=== PATIENT | female | born 1985 ===

== ENCOUNTER 2022-03-03 18:00 | Inpatient (IN) | payer OTHER ==
[2022-03-03 19:03] VITALS: BMI 36.1
[2022-03-03] MEDS ORDERED: FENTANYL/BUPIVACAINE/NS/PF - PCEA - 50 ML DISP.SYRIN EP ONE ×2 (19:35→23:34)
[2022-03-03] MEDS ORDERED: NALOXONE HCL 0.4 MG/ML VIAL IVPUSH PRN (20:30)
[2022-03-03] MEDS ORDERED: FENTANYL/BUPIVACAINE/NS/PF - PCEA - 50 ML DISP.SYRIN EP SCH (20:30)
[2022-03-03 21:15] LABS: BASO % 0.2 % (0-2.0); HEMATOCRIT 37.2 % (32.4-45.2); HEMOGLOBIN 12.1 GM/dL (10.7-15.3); LYMPH % 3.4 % (8-40); MCH 27.2 pg (25.7-33.7); MCHC 32.5 g/dl (32.0-36.0); MEAN CELL VOLUME 83.7 fl (80-96); MONO % 6.7 % (3.8-10.2); NEUT % 89.7 % (42.8-82.8); PLATELET COUNT 218 10^3/uL (134-434); RBC 4.45 M/mm3 (3.60-5.2); RDW 15.4 % (11.6-15.6); WHITE BLOOD COUNT 19.9 K/mm3 (4.0-10.0)
[2022-03-03] MEDS ORDERED: ELECTROLYTE-148 SOLN 1,000 ML IV SCH (21:15)
[2022-03-03 21:17] LABS: INR 1.06 (0.83-1.09); PROTHROMBIN TIME (PATIENT) 12.2 SEC (9.7-13.0)
[2022-03-03 21:20] LABS: ACTIVATED PTT 28.8 SECONDS (25.2-36.5)
[2022-03-03 21:29] LABS: CALCIUM 8.7 mg/dL (8.5-10.1)
[2022-03-03 21:31] LABS: BLOOD UREA NITROGEN 5.4 mg/dL (7-18)
[2022-03-03 21:34] LABS: CREATININE 0.8 mg/dL (0.55-1.3)
[2022-03-03] MEDS ORDERED: ONDANSETRON 4 MG/2 ML VIAL ONE (22:22)
[2022-03-04] MEDS ORDERED: METHYLERGONOVINE MALEATE 0.2 MG/1 ML AMP IM PRN (00:08)
[2022-03-04] MEDS ORDERED: ACETAMINOPHEN 325 MG TABLET (FP) PO PRN (00:08)
[2022-03-04] MEDS ORDERED: OXYTOCIN 20 UNITS in 0.9% NS 20 UNIT/1,000 ML INFUS.BAG IV SCH (00:15)
[2022-03-04] MEDS ORDERED: LIDO 2%/EPI 1:200000 PRESRVFRE (20 ML SDVIAL) ONE (00:22)
[2022-03-04] MEDS ORDERED: SODIUM BICARBONATE 8.4% 50 MEQ/50 ML VIAL ONE (00:22)
[2022-03-04] MEDS ORDERED: OXYTOCIN 20 UNITS in 0.9% NS 20 UNIT/1,000 ML INFUS.BAG IV ONE ×2 (00:22→00:46)
[2022-03-04] MEDS ORDERED: ACETAMINOPHEN INJECTION 100 ML IVPB ONE (00:22)
[2022-03-04] MEDS ORDERED: OXYTOCIN 30 UNITS in 0.9% NS 30 UNIT/500 ML INFUS.BAG IVPB ONE (00:58)
[2022-03-04] MEDS ORDERED: PHENYLEPHRINE HCL 10 MG/1 ML SINGLE DOSE VIAL ONE (01:35)
[2022-03-04] MEDS ORDERED: ceFAZolin SODIUM 1 GM VIAL ONE (01:40)
[2022-03-04] MEDS ORDERED: OXYTOCIN 10 UNITS/ML VIAL ONE (01:52)
[2022-03-04] MEDS ORDERED: CEFAZOLIN 1 GM/D5W 50 ML IVPB SCH (02:00)
[2022-03-04] MEDS: CEFAZOLIN 1 GM in DEXTROSE 5%-WATER - 50 ML IVPB SCH ×3 (02:00→17:07)
[2022-03-04] MEDS ORDERED: ONDANSETRON 4 MG/2 ML VIAL ONE (02:13)
[2022-03-04] MEDS ORDERED: ONDANSETRON 4 MG/2 ML VIAL IVPUSH PRN (03:37)
[2022-03-04 05:51] LABS: CORD BASE EXCESS -6.5 mmol/L (0-2); CORD PCO2 60.2 mmHg (30-78); CORD pH 7.2 (7.14-7.44)
[2022-03-04 05:52] LABS: CORD PCO2 84.4 mmHg (30-78); CORD pH 7.139 (7.14-7.44)
[2022-03-04] MEDS: SIMETHICONE 80 MG TAB.CHEW (FP) PO PRN (06:13)
[2022-03-04] MEDS: ENOXAPARIN NA (PORCINE) 40 MG/0.4 ML DISP.SYRIN SQ SCH (09:56)
[2022-03-04] MEDS ORDERED: oxyCODONE HCL 5 MG TABLET PO PRN ×2 (12:08)
[2022-03-04] MEDS ORDERED: IBUPROFEN 800 MG/8 ML IJ IVPB PRN (13:52)
[2022-03-05] MEDS ORDERED: BISACODYL 10 MG SUPP.RECT RC PRN (00:08)
[2022-03-05] MEDS: SIMETHICONE 80 MG TAB.CHEW (FP) PO PRN ×3 (04:39→21:18)
[2022-03-05] MEDS: IBUPROFEN 600 MG TABLET (FP) PO PRN ×4 (04:39→21:18)
[2022-03-05 09:01] LABS: BASO % 0.3 % (0-2.0); EOS % 0.6 % (0-4.5); HEMATOCRIT 28.2 % (32.4-45.2); HEMOGLOBIN 9.7 GM/dL (10.7-15.3); LYMPH % 5.9 % (8-40); MCH 28.3 pg (25.7-33.7); MCHC 34.5 g/dl (32.0-36.0); MEAN CELL VOLUME 82.1 fl (80-96); MONO % 10.5 % (3.8-10.2); NEUT % 82.7 % (42.8-82.8); PLATELET COUNT 200 10^3/uL (134-434); RBC 3.44 M/mm3 (3.60-5.2); RDW 15.3 % (11.6-15.6); WHITE BLOOD COUNT 17.8 K/mm3 (4.0-10.0)
[2022-03-05] MEDS: ENOXAPARIN NA (PORCINE) 40 MG/0.4 ML DISP.SYRIN SQ SCH (09:20)
[2022-03-06] MEDS: IBUPROFEN 600 MG TABLET (FP) PO PRN (08:11)
[2022-03-06] MEDS: SIMETHICONE 80 MG TAB.CHEW (FP) PO PRN (08:12)
[2022-03-06 08:35] LABS: BASO % 0.4 % (0-2.0); EOS % 2.9 % (0-4.5); HEMATOCRIT 31.1 % (32.4-45.2); HEMOGLOBIN 10.3 GM/dL (10.7-15.3); LYMPH % 10.6 % (8-40); MCH 27.6 pg (25.7-33.7); MCHC 33.2 g/dl (32.0-36.0); MEAN CELL VOLUME 83.1 fl (80-96); MEAN PLT VOLUME 8.9 fl (7.5-11.1); MONO % 8.8 % (3.8-10.2); NEUT % 77.3 % (42.8-82.8); PLATELET COUNT 243 10^3/uL (134-434); RBC 3.74 M/mm3 (3.60-5.2); RDW 15.4 % (11.6-15.6); WHITE BLOOD COUNT 13.5 K/mm3 (4.0-10.0)
[2022-03-06] MEDS: ENOXAPARIN NA (PORCINE) 40 MG/0.4 ML DISP.SYRIN SQ SCH (10:09)
[2022-03-06 10:21] VITALS: BP 125/72; PULSE 80; RESP 16; TEMP 98
== END 2022-03-06 15:20 | disposition home or self-care (01) | DRG 788 ==
LOC: JLDR 18:00 → J3W 03-04 05:41
PROVIDERS: ADMIT Obstetrics & Gynecology; ATTEND Obstetrics & Gynecology
PROC: 10D00Z1 Extraction of Products of Conception, Low, Open Approach (ICD-10-PCS; principal; 2022-03-04)
DX: O62.0 Primary inadequate contractions (principal); O90.81 Anemia of the puerperium; Z3A.39 39 weeks gestation of pregnancy; Z37.0 Single live birth
CPT/HCPCS: 36415; 36600; 80048; 82803; 85025; 85610; 85730; 86780; 86850; 86900; 86901; 88307-TC; C9803-CS; U0003; U0005